=== PATIENT | male | born 1935 | race Caucasian/White ===

== ENCOUNTER → 2016-08-26 | Outpatient (CLI) | payer MEDICARE, OTHER ==
[~2016-08-26] MED LIST: ACET-1757 PO; ACID1TAB7 PO; ALBU18HF INH; ALBU8.5H3 INH; ASPI-496 PO; ATEN25TA PO; ATEN50TA41 PO; AZIT-14 PO; BENZ100C4 PO; BESI5DRO OP; BUDE10.2 INH; CEFD300C2 PO; CHOL500014 PO; CIPR500T87 PO; CLOB100F13 TP; CLOB50FO8 TD; DIPH25CA61 PO; EMPA25TA PO; ERGO500017 PO; FLUT16SP2 INH; FURO20TA3 PO; GABA100C8 PO; GABA300C10 PO; HYDR-3240 PO; HYDR5SUS PO; INSU100C SQ; INSU100C SQ-INSULIN; INSU100I11 SQ-INSULIN; INSU100V5 SQ-INSULIN; INSU100V8 SQ; INSU200I4 SQ; INSU200I4 SUBD; LACT1POW9 PO; LANS30CA PO; LEVO100T5 PO; LEVO250T8 PO; LEVO750T6 PO; LINA5TAB PO; LOSA25TA5 PO; MELO-184 PO; METF100010 PO; METF500T9 PO; METH500T5 PO; MOME17SP PO; MULT-717 PO; MUPI15CR9 TD; MUPI22OI2 TD; NITR100C PO; ONDA-39 PO; PANT40TA5 PO; PIOG30TA3 PO; POLY17PO5 PO; SIMV40TA3 PO; TACR100O2 TD; TAMS0.4C2 PO; TRAM50TA2 PO; TRIA340. TP; TRIA5PAS4 TD; WARF5TAB7 PO; WARF7.5T6 PO; WARF7.5T6 PO-COUM; [UNRECOGNIZED DRUG - CODE] IM; [UNRECOGNIZED DRUG - CODE] INJ
== END | disposition home or self-care (01) ==
LOC: RAD 09:27
PROVIDERS: ATTEND Internal Medicine
DX: Z51.89 Encounter for other specified aftercare (principal); R13.10 Dysphagia, unspecified
CPT/HCPCS: 74230

== ENCOUNTER 2016-11-20 16:01 | Emergency (ER) | payer MEDICARE, OTHER ==
[~2016-11-20] VITALS: Ht 177.8 cm; Wt 100.6 kg
[~2016-11-20 16:01] MED LIST changes: -AZIT-14 PO; +AZIT250T89 PO; -CEFD300C2 PO; +CEFD300C37 PO; +GABA-826 PO; -GABA100C8 PO
[2016-11-20 16:52] LABS: BLOOD UREA NITROGEN 30 mg/dL (7-18)
[2016-11-20 18:57] VITALS: BP 160/74
== END 2016-11-20 18:59 | disposition home or self-care (01) ==
LOC: ED 18:11
DX: R33.9 Retention of urine, unspecified (principal); N40.0 Benign prostatic hyperplasia without lower urinary tract symptoms; Z88.0 Allergy status to penicillin
CPT/HCPCS: 36415; 51702; 80048; 81001; 82040; 85025; 99284

== ENCOUNTER 2017-06-04 12:35 | Inpatient (IN) | payer MEDICARE, OTHER ==
[~2017-06-04] VITALS: Ht 172.7 cm; Wt 94.1 kg
[~2017-06-04 12:35] MED LIST changes: -ALBU8.5H3 INH; +ALBU8.5H8 INH; +BENZ-17 PO; -BENZ100C4 PO; -CHOL500014 PO; +CHOL500045 PO; +INSU100I32 SQ; -MELO-184 PO; +MELO15TA24 PO; +NITR50CA PO; -ONDA-39 PO; +ONDA4TAB12 PO; +TRIA5PAS10 TD; -TRIA5PAS4 TD; +WARF6TAB7 PO
[2017-06-04] MEDS ORDERED: SODIUM CHLORIDE FLUSH 10ML SYR IVF ONE (13:00)
[2017-06-04] MEDS ORDERED: SODIUM CHLORIDE 0.9% 1,000ML IVBOLUS ONE (13:00)
[2017-06-04] MEDS ORDERED: PLEASE ENTER ALLERGIES MC SCH (13:00)
[2017-06-04] MEDS ORDERED: CEFTRIAXONE PMX 1GM/50ML 50 ML IVPB ONE ×2 (13:00)
[2017-06-04] MEDS ORDERED: PLEASE ENTER HEIGHT AND WEIGHT MC SCH (13:00)
[2017-06-04 13:14] LABS: BASOPHILS # (AUTO) 0.04 x10^3/uL (0-0.1); BASOPHILS % (AUTO) 1 % (0-1); EOSINOPHILS # (AUTO) 0.02 x10^3/uL (0-0.4); EOSINOPHILS % (AUTO) 0 % (1-7); LYMPHOCYTES # (AUTO) 0.55 x10^3/uL (1-3.4); LYMPHOCYTES % (AUTO) 7 % (22-44); MD NO; MEAN CORPUSCULAR HEMOGLOBIN 25.6 pg (27.5-34.5); MEAN CORPUSCULAR HGB CONC 31.9 g/dL (33.2-36.2); MEAN CORPUSCULAR VOLUME 80.2 fL (81-97); MEAN PLATELET VOLUME 7.9 fL (7.4-10.4); MONOCYTES # (AUTO) 0.75 x10^3/uL (0.2-0.8); MONOCYTES % (AUTO) 10 % (2-9); NEUTROPHILS # (AUTO) 6.43 x10^3/uL (1.8-6.8); NEUTROPHILS % (AUTO) 83 % (42-75); PLATELET COUNT 179 x10^3/uL (130-400); RED BLOOD COUNT 4.54 x10^6/uL (4.38-5.82); RED CELL DISTRIBUTION WIDTH 20.4 % (9.4-14.8)
[2017-06-04 13:17] LABS: RAPID INFLUENZA A POSITIVE (Negative); RAPID INFLUENZA B Negative (Negative)
[2017-06-04 13:21] LABS: INTERNATIONAL NORMALIZED RATIO 1.55 (0.93-1.1)
[2017-06-04] MEDS ORDERED: CEFTRIAXONE PMX 1GM/50ML 50 ML ONE (13:21)
[2017-06-04 13:25] LABS: ANION GAP 9 mmol/L (5-15); CALCIUM 9.1 mg/dL (8.5-10.1); CHLORIDE 106 mmol/L (98-107)
[2017-06-04 13:26] LABS: ALANINE AMINOTRANSFERASE 27 U/L (12-78); ALBUMIN 3.2 g/dL (3.4-5.0)
[2017-06-04 13:28] LABS: ALKALINE PHOSPHATASE 68 U/L (45-117); BILIRUBIN,TOTAL 0.6 mg/dL (0.2-1.0); TOTAL PROTEIN 7.1 g/dL (6.4-8.2)
[2017-06-04] MEDS ORDERED: OSELTAMIVIR 75 MG CAPSULE PO ONE (14:30)
[2017-06-04 14:35] LABS: MICROSCOPIC AUTO
[2017-06-04 14:40] LABS: CULTURE INDICATED? YES
[2017-06-04 15:54] VITALS: BP 113/67
[2017-06-04] MEDS ORDERED: POLYETHYLENE GLYCOL 17 GM PACKET PO PRN (16:30)
[2017-06-04] MEDS ORDERED: ONDANSETRON ODT 4 MG PO PRN (16:30)
[2017-06-04] MEDS ORDERED: GUAIFENESIN/DM 200-20MG, 10ML UDC PO PRN (16:30)
[2017-06-04] MEDS ORDERED: HEPARIN 5,000 UNITS/ML, 1ML SQ SCH (16:30)
[2017-06-04] MEDS ORDERED: CEFTRIAXONE PMX 1GM/50ML 50 ML IV SCH (16:30)
[2017-06-04] MEDS ORDERED: ALBUTEROL/IPRATROPIUM 2.5MG/0.5MG, 3 ML ONE (16:56)
[2017-06-04] MEDS ORDERED: DEXTROSE 50%, 50ML SYRINGE IVPush PRN (17:30)
[2017-06-04] MEDS ORDERED: DEXTROSE 4 GM TAB.CHEW PO PRN (17:30)
[2017-06-04] MEDS ORDERED: GLUCAGON 1 MG IM PRN (17:30)
[2017-06-04] MEDS ORDERED: ALBUTEROL/IPRATROPIUM 2.5MG/0.5MG, 3 ML NPPB PRN (17:30)
[2017-06-04] MEDS: SODIUM CHLORIDE 0.9% 1,000 ML IV SCH ×2 (17:38→23:59)
[2017-06-04] MEDS: AZITHROMYCIN 500 MG in SODIUM CHLORIDE 0.9% 250 ML IV SCH (17:47)
[2017-06-04] MEDS ORDERED: WARFARIN 7.5 MG TABLET PO-COUM ONE (18:00)
[2017-06-04] MEDS ORDERED: ALBUTEROL/IPRATROPIUM 2.5MG/0.5MG, 3 ML NPPB SCH (20:00)
[2017-06-04 20:29] VITALS: BP 113/67
[2017-06-04] MEDS: SODIUM CHLORIDE FLUSH 10ML SYR IVF SCH (20:59)
[2017-06-04] MEDS: CEFTRIAXONE 1,000 MG in SODIUM CHLORIDE 0.9% 50 ML IV SCH (20:59)
[2017-06-04] MEDS: ALBUTEROL/IPRATROPIUM 2.5MG/0.5MG, 3 ML NPPB SCH (21:00)
[2017-06-04] MEDS: INSULIN ASPART 100 UNITS/ML, PEN SQ-INSULIN SCH (21:00)
[2017-06-04] MEDS: LACTOBACILLUS CHEW TABLET PO SCH (21:19)
[2017-06-04] MEDS: SIMVASTATIN 40 MG TABLET PO SCH (21:19)
[2017-06-04] MEDS: TAMSULOSIN 0.4 MG CAP.ER.24H PO SCH (21:19)
[2017-06-05 03:29] VITALS: BP 114/68
[2017-06-05 05:43] LABS: BASOPHILS % (AUTO) 0 % (0-1); EOSINOPHILS # (AUTO) 0.02 x10^3/uL (0-0.4); EOSINOPHILS % (AUTO) 0 % (1-7); LYMPHOCYTES # (AUTO) 0.45 x10^3/uL (1-3.4); LYMPHOCYTES % (AUTO) 9 % (22-44); MD NO; MEAN CORPUSCULAR HEMOGLOBIN 25.9 pg (27.5-34.5); MEAN CORPUSCULAR HGB CONC 32.2 g/dL (33.2-36.2); MEAN CORPUSCULAR VOLUME 80.2 fL (81-97); MONOCYTES # (AUTO) 0.85 x10^3/uL (0.2-0.8); MONOCYTES % (AUTO) 18 % (2-9); NEUTROPHILS # (AUTO) 3.57 x10^3/uL (1.8-6.8); NEUTROPHILS % (AUTO) 73 % (42-75); PLATELET COUNT 152 x10^3/uL (130-400); RED BLOOD COUNT 4.16 x10^6/uL (4.38-5.82); RED CELL DISTRIBUTION WIDTH 19.7 % (9.4-14.8)
[2017-06-05 05:46] LABS: INTERNATIONAL NORMALIZED RATIO 1.68 (0.93-1.1); PROTHROMBIN TIME 17.3 Seconds (9.6-11.5)
[2017-06-05 05:54] LABS: ANION GAP 10 mmol/L (5-15); CALCIUM 8.7 mg/dL (8.5-10.1); CHLORIDE 111 mmol/L (98-107); CREATININE 1.39 mg/dL (0.7-1.3)
[2017-06-05] MEDS: SODIUM CHLORIDE 0.9% 1,000 ML IV SCH ×3 (06:26→20:07)
[2017-06-05] MEDS: INSULIN ASPART 100 UNITS/ML, PEN SQ-INSULIN SCH ×4 (07:00→20:48)
[2017-06-05 07:05] VITALS: BP 130/75
[2017-06-05] MEDS: LEVOTHYROXINE 100 MCG TABLET PO SCH (08:09)
[2017-06-05] MEDS: LACTOBACILLUS CHEW TABLET PO SCH ×3 (08:09→20:38)
[2017-06-05] MEDS: TAMSULOSIN 0.4 MG CAP.ER.24H PO SCH ×2 (08:09→20:39)
[2017-06-05] MEDS: ASPIRIN 81 MG TABLET CHEW PO SCH (08:09)
[2017-06-05] MEDS: SODIUM CHLORIDE FLUSH 10ML SYR IVF SCH ×2 (08:10→20:37)
[2017-06-05] MEDS: SENNA/DOCUSATE TABLET PO SCH (08:10)
[2017-06-05] MEDS: GUAIFENESIN/DM 200-20MG, 10ML UDC PO PRN ×3 (08:33→20:38)
[2017-06-05] MEDS ORDERED: ASPIRIN 81 MG TABLET EC PO SCH (09:00)
[2017-06-05] MEDS: ALBUTEROL/IPRATROPIUM 2.5MG/0.5MG, 3 ML NPPB SCH ×2 (11:08→19:57)
[2017-06-05] MEDS: BENZONATATE 100 MG CAPSULE PO SCH ×3 (11:25→20:39)
[2017-06-05 12:42] VITALS: BP 125/69
[2017-06-05] MEDS: AZITHROMYCIN 500 MG in SODIUM CHLORIDE 0.9% 250 ML IV SCH (16:19)
[2017-06-05 17:17] LABS: BASOPHILS # (AUTO) 0.07 x10^3/uL (0-0.1); BASOPHILS % (AUTO) 2 % (0-1); EOSINOPHILS # (AUTO) 0.02 x10^3/uL (0-0.4); EOSINOPHILS % (AUTO) 1 % (1-7); LYMPHOCYTES # (AUTO) 0.55 x10^3/uL (1-3.4); LYMPHOCYTES % (AUTO) 14 % (22-44); MD NO; MEAN CORPUSCULAR HEMOGLOBIN 26.2 pg (27.5-34.5); MEAN CORPUSCULAR HGB CONC 32.4 g/dL (33.2-36.2); MEAN CORPUSCULAR VOLUME 80.8 fL (81-97); MEAN PLATELET VOLUME 7.9 fL (7.4-10.4); MONOCYTES # (AUTO) 0.71 x10^3/uL (0.2-0.8); MONOCYTES % (AUTO) 18 % (2-9); NEUTROPHILS # (AUTO) 2.64 x10^3/uL (1.8-6.8); NEUTROPHILS % (AUTO) 66 % (42-75); PLATELET COUNT 161 x10^3/uL (130-400); RED BLOOD COUNT 4.11 x10^6/uL (4.38-5.82); RED CELL DISTRIBUTION WIDTH 19.9 % (9.4-14.8)
[2017-06-05 17:29] LABS: ALBUMIN 2.6 g/dL (3.4-5.0); ANION GAP 8 mmol/L (5-15); CALCIUM 8.2 mg/dL (8.5-10.1); CHLORIDE 111 mmol/L (98-107); CREATININE 1.29 mg/dL (0.7-1.3)
[2017-06-05] MEDS ORDERED: WARFARIN 7.5 MG TABLET PO-COUM ONE (18:00)
[2017-06-05] MEDS: ACETAMINOPHEN 325 MG TABLET PO PRN ×2 (18:50→20:36)
[2017-06-05 18:54] VITALS: BP 132/72
[2017-06-05] MEDS: CEFTRIAXONE 1,000 MG in SODIUM CHLORIDE 0.9% 50 ML IV SCH (20:36)
[2017-06-05] MEDS: SIMVASTATIN 40 MG TABLET PO SCH (20:39)
[2017-06-06 01:31] LABS: CLOSTRIDIUM DIFFICILE ANTIGEN NEGATIVE; CLOSTRIDIUM DIFFICILE TOXIN NEGATIVE (Negative)
[2017-06-06 02:17] VITALS: BP 116/71
[2017-06-06] MEDS: SODIUM CHLORIDE 0.9% 1,000 ML IV SCH ×3 (04:37→18:36)
[2017-06-06 05:00] LABS: INTERNATIONAL NORMALIZED RATIO 2.42 (0.93-1.1); PROTHROMBIN TIME 24.7 Seconds (9.6-11.5)
[2017-06-06] MEDS: LEVOTHYROXINE 100 MCG TABLET PO SCH (06:16)
[2017-06-06] MEDS: INSULIN ASPART 100 UNITS/ML, PEN SQ-INSULIN SCH ×4 (07:00→20:46)
[2017-06-06 07:59] VITALS: BP 134/72
[2017-06-06] MEDS: ASPIRIN 81 MG TABLET CHEW PO SCH (08:09)
[2017-06-06] MEDS: LACTOBACILLUS CHEW TABLET PO SCH ×3 (08:10→20:47)
[2017-06-06] MEDS: BENZONATATE 100 MG CAPSULE PO SCH ×3 (08:10→20:47)
[2017-06-06] MEDS: TAMSULOSIN 0.4 MG CAP.ER.24H PO SCH ×2 (08:13→20:47)
[2017-06-06] MEDS: SODIUM CHLORIDE FLUSH 10ML SYR IVF SCH ×2 (08:13→20:48)
[2017-06-06] MEDS: SENNA/DOCUSATE TABLET PO SCH (08:14)
[2017-06-06] MEDS: ATENOLOL 25 MG TABLET PO SCH (08:14)
[2017-06-06] MEDS: ALBUTEROL/IPRATROPIUM 2.5MG/0.5MG, 3 ML NPPB SCH ×2 (11:28→19:02)
[2017-06-06 12:41] VITALS: BP 118/56
[2017-06-06] MEDS ORDERED: WARFARIN 3 MG TABLET PO-COUM ONE (18:00)
[2017-06-06] MEDS: AZITHROMYCIN 500 MG in SODIUM CHLORIDE 0.9% 250 ML IV SCH (18:16)
[2017-06-06 20:28] VITALS: BP 147/70
[2017-06-06] MEDS: CEFTRIAXONE 1,000 MG in SODIUM CHLORIDE 0.9% 50 ML IV SCH (20:45)
[2017-06-06] MEDS: OSELTAMIVIR 75 MG CAPSULE PO SCH (20:46)
[2017-06-06] MEDS: SIMVASTATIN 40 MG TABLET PO SCH (20:47)
[2017-06-06 21:59] VITALS: BP 130/71
[2017-06-07] MEDS ORDERED: FUROSEMIDE 20 MG/2 ML IV SCH (00:30)
[2017-06-07 00:36] VITALS: BP 131/68
[2017-06-07 05:01] LABS: BASOPHILS # (AUTO) 0.01 x10^3/uL (0-0.1); BASOPHILS % (AUTO) 0 % (0-1); EOSINOPHILS % (AUTO) 3 % (1-7); LYMPHOCYTES # (AUTO) 0.69 x10^3/uL (1-3.4); LYMPHOCYTES % (AUTO) 21 % (22-44); MD NO; MEAN CORPUSCULAR HEMOGLOBIN 26.3 pg (27.5-34.5); MEAN CORPUSCULAR HGB CONC 33.1 g/dL (33.2-36.2); MEAN CORPUSCULAR VOLUME 79.5 fL (81-97); MEAN PLATELET VOLUME 7.6 fL (7.4-10.4); MONOCYTES % (AUTO) 12 % (2-9); NEUTROPHILS # (AUTO) 2.11 x10^3/uL (1.8-6.8); NEUTROPHILS % (AUTO) 64 % (42-75); PLATELET COUNT 167 x10^3/uL (130-400); RED BLOOD COUNT 4.25 x10^6/uL (4.38-5.82); RED CELL DISTRIBUTION WIDTH 19.4 % (9.4-14.8)
[2017-06-07 05:03] LABS: INTERNATIONAL NORMALIZED RATIO 3.16 (0.93-1.1); PROTHROMBIN TIME 32.1 Seconds (9.6-11.5)
[2017-06-07 05:08] LABS: ANION GAP 9 mmol/L (5-15); CHLORIDE 108 mmol/L (98-107); CREATININE 0.97 mg/dL (0.7-1.3)
[2017-06-07] MEDS: LEVOTHYROXINE 100 MCG TABLET PO SCH (06:29)
[2017-06-07] MEDS: INSULIN ASPART 100 UNITS/ML, PEN SQ-INSULIN SCH ×4 (08:38→20:03)
[2017-06-07 08:39] VITALS: BP 128/58
[2017-06-07] MEDS: SODIUM CHLORIDE FLUSH 10ML SYR IVF SCH ×2 (08:41→20:03)
[2017-06-07] MEDS: LACTOBACILLUS CHEW TABLET PO SCH ×3 (08:41→20:01)
[2017-06-07] MEDS: BENZONATATE 100 MG CAPSULE PO SCH ×3 (08:41→20:02)
[2017-06-07] MEDS: TAMSULOSIN 0.4 MG CAP.ER.24H PO SCH ×2 (08:41→20:03)
[2017-06-07] MEDS: ASPIRIN 81 MG TABLET CHEW PO SCH (08:41)
[2017-06-07] MEDS: OSELTAMIVIR 75 MG CAPSULE PO SCH ×2 (08:42→20:02)
[2017-06-07] MEDS: SENNA/DOCUSATE TABLET PO SCH (08:42)
[2017-06-07] MEDS: ATENOLOL 25 MG TABLET PO SCH (08:42)
[2017-06-07] MEDS: ALBUTEROL/IPRATROPIUM 2.5MG/0.5MG, 3 ML NPPB SCH ×2 (09:00→18:40)
[2017-06-07 15:59] VITALS: BP 139/73
[2017-06-07] MEDS: AZITHROMYCIN 500 MG in SODIUM CHLORIDE 0.9% 250 ML IV SCH (16:28)
[2017-06-07] MEDS ORDERED: WARFARIN 5 MG TABLET PO-COUM ONE (18:00)
[2017-06-07] MEDS: CEFTRIAXONE 1,000 MG in DEXTROSE 5% 50 ML IV SCH (18:33)
[2017-06-07] MEDS: SIMVASTATIN 40 MG TABLET PO SCH (20:02)
[2017-06-07 20:12] VITALS: BP 114/70
[2017-06-07] MEDS ORDERED: CEFTRIAXONE 1,000 MG in DEXTROSE 5% 50 ML IV SCH (21:00)
[2017-06-08 01:33] VITALS: BP 144/79
[2017-06-08 05:27] LABS: INTERNATIONAL NORMALIZED RATIO 4.98 (0.93-1.1)
[2017-06-08 05:34] LABS: PROTHROMBIN TIME 50.2 Seconds (9.6-11.5)
[2017-06-08] MEDS: LEVOTHYROXINE 100 MCG TABLET PO SCH (06:33)
[2017-06-08] MEDS: INSULIN ASPART 100 UNITS/ML, PEN SQ-INSULIN SCH ×4 (07:00→20:56)
[2017-06-08 07:53] VITALS: BP 165/73
[2017-06-08] MEDS ORDERED: HOLD COUMADIN MC PRN (08:00)
[2017-06-08] MEDS: ATENOLOL 25 MG TABLET PO SCH (09:00)
[2017-06-08] MEDS: SODIUM CHLORIDE FLUSH 10ML SYR IVF SCH ×2 (09:00→20:55)
[2017-06-08] MEDS: BENZONATATE 100 MG CAPSULE PO SCH ×3 (09:21→20:55)
[2017-06-08] MEDS: OSELTAMIVIR 75 MG CAPSULE PO SCH ×2 (09:21→20:55)
[2017-06-08] MEDS: TAMSULOSIN 0.4 MG CAP.ER.24H PO SCH ×2 (09:21→20:55)
[2017-06-08] MEDS: LACTOBACILLUS CHEW TABLET PO SCH ×3 (09:21→20:55)
[2017-06-08] MEDS: ASPIRIN 81 MG TABLET CHEW PO SCH (09:21)
[2017-06-08] MEDS: SENNA/DOCUSATE TABLET PO SCH (09:21)
[2017-06-08] MEDS: ALBUTEROL/IPRATROPIUM 2.5MG/0.5MG, 3 ML NPPB SCH ×2 (10:00→19:16)
[2017-06-08] MEDS: FUROSEMIDE 20 MG/2 ML IV SCH ×2 (12:16→16:43)
[2017-06-08] MEDS: POTASSIUM CHLORIDE 20 MEQ TAB.ER.PRT PO SCH ×2 (12:17→16:43)
[2017-06-08] MEDS: LOSARTAN 25MG TABLET PO SCH (12:17)
[2017-06-08 15:56] VITALS: BP 137/76
[2017-06-08] MEDS: CEFTRIAXONE 1,000 MG in DEXTROSE 5% 50 ML IV SCH (16:43)
[2017-06-08] MEDS: AZITHROMYCIN 500 MG in SODIUM CHLORIDE 0.9% 250 ML IV SCH (17:30)
[2017-06-08 18:28] VITALS: BP 108/73
[2017-06-08] MEDS: SIMVASTATIN 40 MG TABLET PO SCH (20:55)
[2017-06-08] MEDS: ACETAMINOPHEN 325 MG TABLET PO PRN (20:56)
[2017-06-09 00:10] VITALS: BP 122/62
[2017-06-09 05:16] LABS: BASOPHILS # (AUTO) 0.02 x10^3/uL (0-0.1); BASOPHILS % (AUTO) 1 % (0-1); EOSINOPHILS # (AUTO) 0.15 x10^3/uL (0-0.4); EOSINOPHILS % (AUTO) 3 % (1-7); LYMPHOCYTES # (AUTO) 1.07 x10^3/uL (1-3.4); LYMPHOCYTES % (AUTO) 25 % (22-44); MD NO; MEAN CORPUSCULAR HEMOGLOBIN 25.7 pg (27.5-34.5); MEAN CORPUSCULAR HGB CONC 32.6 g/dL (33.2-36.2); MEAN CORPUSCULAR VOLUME 78.9 fL (81-97); MEAN PLATELET VOLUME 7.5 fL (7.4-10.4); MONOCYTES # (AUTO) 0.43 x10^3/uL (0.2-0.8); MONOCYTES % (AUTO) 10 % (2-9); NEUTROPHILS # (AUTO) 2.61 x10^3/uL (1.8-6.8); NEUTROPHILS % (AUTO) 61 % (42-75); PLATELET COUNT 169 x10^3/uL (130-400); RED BLOOD COUNT 4.37 x10^6/uL (4.38-5.82); RED CELL DISTRIBUTION WIDTH 19.5 % (9.4-14.8)
[2017-06-09 05:20] LABS: INTERNATIONAL NORMALIZED RATIO 5.08 (0.93-1.1); PROTHROMBIN TIME 51.2 Seconds (9.6-11.5)
[2017-06-09 05:30] LABS: ANION GAP 5 mmol/L (5-15); CALCIUM 8.3 mg/dL (8.5-10.1); CHLORIDE 107 mmol/L (98-107); CREATININE 0.99 mg/dL (0.7-1.3)
[2017-06-09] MEDS: LEVOTHYROXINE 100 MCG TABLET PO SCH (06:20)
[2017-06-09 07:37] VITALS: BP 151/69
[2017-06-09] MEDS ORDERED: HOLD COUMADIN MC PRN (08:00)
[2017-06-09] MEDS: SENNA/DOCUSATE TABLET PO SCH (09:00)
[2017-06-09] MEDS: ALBUTEROL/IPRATROPIUM 2.5MG/0.5MG, 3 ML NPPB SCH ×2 (09:00→19:18)
[2017-06-09] MEDS: ATENOLOL 25 MG TABLET PO SCH (09:00)
[2017-06-09] MEDS: INSULIN ASPART 100 UNITS/ML, PEN SQ-INSULIN SCH ×4 (09:23→22:13)
[2017-06-09] MEDS: SODIUM CHLORIDE FLUSH 10ML SYR IVF SCH ×2 (09:23→22:11)
[2017-06-09] MEDS: OSELTAMIVIR 75 MG CAPSULE PO SCH ×2 (09:23→22:12)
[2017-06-09] MEDS: LACTOBACILLUS CHEW TABLET PO SCH ×3 (09:24→22:12)
[2017-06-09] MEDS: LOSARTAN 25MG TABLET PO SCH (09:24)
[2017-06-09] MEDS: TAMSULOSIN 0.4 MG CAP.ER.24H PO SCH ×2 (09:24→21:00)
[2017-06-09] MEDS: ASPIRIN 81 MG TABLET CHEW PO SCH (09:24)
[2017-06-09] MEDS: BENZONATATE 100 MG CAPSULE PO SCH ×3 (09:24→22:12)
[2017-06-09] MEDS ORDERED: ONDANSETRON 2MG/ML, 2ML ONE (11:32)
[2017-06-09] MEDS ORDERED: ONDANSETRON 2MG/ML, 2ML IVPush PRN (12:00)
[2017-06-09 13:56] VITALS: BP 135/78
[2017-06-09] MEDS: CEFTRIAXONE 1,000 MG in DEXTROSE 5% 50 ML IV SCH (16:34)
[2017-06-09] MEDS: AZITHROMYCIN 500 MG in SODIUM CHLORIDE 0.9% 250 ML IV SCH (17:12)
[2017-06-09 18:57] VITALS: BP 105/52
[2017-06-09] MEDS: SIMVASTATIN 40 MG TABLET PO SCH (22:13)
[2017-06-10 02:26] VITALS: BP 118/70
[2017-06-10] MEDS: LEVOTHYROXINE 100 MCG TABLET PO SCH (05:38)
[2017-06-10 06:53] LABS: INTERNATIONAL NORMALIZED RATIO 3.66 (0.93-1.1); PROTHROMBIN TIME 37.1 Seconds (9.6-11.5)
[2017-06-10 07:05] VITALS: BP 159/77
[2017-06-10] MEDS: ALBUTEROL/IPRATROPIUM 2.5MG/0.5MG, 3 ML NPPB SCH (07:27)
[2017-06-10] MEDS: SENNA/DOCUSATE TABLET PO SCH (08:35)
[2017-06-10] MEDS ORDERED: WARF2TAB PO-COUM (08:45)
[2017-06-10] MEDS ORDERED: CEFD300C37 PO (08:45)
[2017-06-10] MEDS ORDERED: OSEL75CA PO (08:45)
[2017-06-10] MEDS: SODIUM CHLORIDE FLUSH 10ML SYR IVF SCH (08:50)
[2017-06-10] MEDS: TAMSULOSIN 0.4 MG CAP.ER.24H PO SCH (08:50)
[2017-06-10] MEDS: INSULIN ASPART 100 UNITS/ML, PEN SQ-INSULIN SCH ×2 (08:50→11:16)
[2017-06-10] MEDS: BENZONATATE 100 MG CAPSULE PO SCH (08:50)
[2017-06-10] MEDS: LACTOBACILLUS CHEW TABLET PO SCH (08:50)
[2017-06-10] MEDS: ATENOLOL 25 MG TABLET PO SCH (08:51)
[2017-06-10] MEDS: LOSARTAN 25MG TABLET PO SCH (08:51)
[2017-06-10] MEDS: OSELTAMIVIR 75 MG CAPSULE PO SCH (08:51)
[2017-06-10] MEDS: ASPIRIN 81 MG TABLET CHEW PO SCH (09:00)
[2017-06-10 14:05] VITALS: BP 137/68
[2017-06-10] MEDS ORDERED: WARFARIN 2 MG TABLET PO-COUM SCH (18:00)
== END 2017-06-10 17:09 | DRG 682 ==
LOC: ED 12:54 → EDIP 14:06 → INTOOBSV 14:06 → 4WST 16:13 → OBSVTOIN 06-05 15:35
PROVIDERS: ADMIT Family Medicine; ATTEND Family Medicine
DX: N17.9 Acute kidney failure, unspecified (principal); J10.00 Influenza due to other identified influenza virus with unspecified type of pneumonia; J96.01 Acute respiratory failure with hypoxia; I50.43 Acute on chronic combined systolic (congestive) and diastolic (congestive) heart failure; E87.2 Acidosis; D68.69 Other thrombophilia; E11.42 Type 2 diabetes mellitus with diabetic polyneuropathy; J18.9 Pneumonia, unspecified organism; J44.0 Chronic obstructive pulmonary disease with (acute) lower respiratory infection; N39.0 Urinary tract infection, site not specified; I11.0 Hypertensive heart disease with heart failure; I95.9 Hypotension, unspecified; I48.91 Unspecified atrial fibrillation; E03.9 Hypothyroidism, unspecified; E78.5 Hyperlipidemia, unspecified; F03.90 Unspecified dementia, unspecified severity, without behavioral disturbance, psychotic disturbance, mood disturbance, and anxiety; G47.33 Obstructive sleep apnea (adult) (pediatric); I25.10 Atherosclerotic heart disease of native coronary artery without angina pectoris; K22.0 Achalasia of cardia; N28.1 Cyst of kidney, acquired; N40.0 Benign prostatic hyperplasia without lower urinary tract symptoms; Z79.01 Long term (current) use of anticoagulants; Z79.4 Long term (current) use of insulin; Z95.0 Presence of cardiac pacemaker; Z95.5 Presence of coronary angioplasty implant and graft; Z79.899 Other long term (current) drug therapy; Z88.0 Allergy status to penicillin; Z79.82 Long term (current) use of aspirin
CPT/HCPCS: 36415; 71045; 74018; 74230; 80048; 80053; 81001; 82040; 82962; 83605; 83735; 85025; 85610; 87040; 87077; 87086; 87324; 87400; 93005; 93306; 94640; 96365; 96366; G0378; J0456; J0696; J1815; J2405; J7620; J1940; J7030; J7050

== ENCOUNTER 2017-09-24 16:55 | Emergency (ER) | payer MEDICARE, OTHER ==
[~2017-09-24] VITALS: Ht 177.8 cm; Wt 85.0 kg
[~2017-09-24 16:55] MED LIST changes: +OSEL75CA PO; +WARF-36 PO; +WARF2TAB PO-COUM; -WARF5TAB7 PO; +WARF6TAB47 PO; -WARF6TAB7 PO; +WARF7.5T46 PO; +WARF7.5T46 PO-COUM; -WARF7.5T6 PO; -WARF7.5T6 PO-COUM
[2017-09-24 17:03] VITALS: BP 143/82
[2017-09-24 18:06] LABS: MICROSCOPIC AUTO
[2017-09-24 18:09] LABS: CULTURE INDICATED? YES
== END 2017-09-24 19:40 | disposition home or self-care (01) ==
LOC: ED 18:30
DX: N30.01 Acute cystitis with hematuria (principal); B37.42 Candidal balanitis; J44.9 Chronic obstructive pulmonary disease, unspecified; I10 Essential (primary) hypertension; I48.91 Unspecified atrial fibrillation; I25.10 Atherosclerotic heart disease of native coronary artery without angina pectoris; I95.9 Hypotension, unspecified; E11.9 Type 2 diabetes mellitus without complications
CPT/HCPCS: 51700; 74176; 81001; 87077; 87086; 87186; 99285

== ENCOUNTER 2018-06-22 08:19 | Day surgery (SDC) | payer MEDICARE, OTHER ==
[~2018-06-22] VITALS: Ht 170.2 cm; Wt 86.8 kg
[~2018-06-22 08:19] MED LIST changes: +ACET325T14 PO; +BARRIER CREAM TP; +CHOL500050 PO; +DESENEX TP; +LACTINEX PO; +LOPE2TAB59 PO; +LOSA25TA25 PO; -LOSA25TA5 PO; +METR500T PO; -PIOG30TA3 PO; +PIOG30TA67 PO; +UREA 40% TP
[2018-06-22 08:54] VITALS: BP 115/60
[2018-06-22] MEDS ORDERED: MIDAZOLAM 1 MG/ML, 5ML ONE (09:23)
[2018-06-22] MEDS ORDERED: LIDOCAINE 2%, 20ML ONE (09:23)
[2018-06-22] MEDS ORDERED: FENTANYL PF 250 MCG/5ML ONE (09:23)
[2018-06-22] MEDS ORDERED: CEFAZOLIN 1,000 MG ONE (09:24)
[2018-06-22] MEDS ORDERED: VANCOMYCIN 500 MG ONE (09:29)
[2018-06-22] MEDS ORDERED: VANCOMYCIN PMX 1GM/200ML 200 ML ONE (09:29)
[2018-06-22] MEDS ORDERED: SACC250C4 PO (09:49)
[2018-06-22] MEDS ORDERED: SODIUM CHLORIDE 0.9% 1,000 ML IV SCH (10:00)
[2018-06-22] MEDS ORDERED: VANCOMYCIN PMX 1GM/200ML 200 ML IVPB SCH (10:00)
[2018-06-22] MEDS ORDERED: HOLD MEDICATION MC PRN (10:30)
[2018-06-22] MEDS ORDERED: TEMPLATE NON-FORMULARY MED. (Tramadol Hcl** 50 MG) PO PRN (10:30)
[2018-06-22] MEDS ORDERED: INSULIN GLARGINE HUM REC ANLOG 65 UNIT SQ SCH (10:30)
[2018-06-22] MEDS ORDERED: METRONIDAZOLE 500 MG PO SCH (10:30)
[2018-06-22] MEDS ORDERED: TEMPLATE NON-FORMULARY MED. (Cholecalciferol (Vitamin D3)** (Vitamin D3**) 50,000 UNIT) PO SCH (10:30)
[2018-06-22] MEDS ORDERED: TEMPLATE NON-FORMULARY MED. (Albuterol Sulfate (Proair Hfa) 90 MCG) INH SCH (10:30)
[2018-06-22] MEDS ORDERED: ACETAMINOPHEN 325 MG TABLET PO PRN (10:30)
[2018-06-22] MEDS ORDERED: TEMPLATE NON-FORMULARY MED. (Insulin Lispro** (Humalog**) 0 UNITS) SQ-INSULIN SCH (11:00)
[2018-06-22] MEDS ORDERED: ACETAMINOPHEN 325 MG TABLET ONE (11:15)
[2018-06-22] MEDS ORDERED: LACTINEX PO SCH (16:00)
[2018-06-22] MEDS ORDERED: WARFARIN SODIUM 2 MG PO-COUM SCH (18:00)
[2018-06-22] MEDS ORDERED: SODIUM CHLORIDE FLUSH 10ML SYR IVF SCH (21:00)
[2018-06-22] MEDS ORDERED: TEMPLATE NON-FORMULARY MED. (Metformin Hcl** (Metformin Hcl Er**) 1,000 MG) PO SCH (21:00)
[2018-06-22] MEDS ORDERED: SIMVASTATIN 40 MG TABLET PO SCH (21:00)
[2018-06-22] MEDS ORDERED: CEFDINIR 300 MG PO SCH (21:00)
[2018-06-22] MEDS ORDERED: TEMPLATE NON-FORMULARY MED. (Budesonide/Formoterol Fumarate (Symbicort 160-4.5 Mcg Inhaler INH SCH (21:00)
[2018-06-23] MEDS ORDERED: LINAGLIPTIN 5 MG TAB PO SCH (09:00)
[2018-06-23] MEDS ORDERED: LEVOTHYROXINE SODIUM 100 MCG PO SCH (09:00)
[2018-06-23] MEDS ORDERED: TEMPLATE NON-FORMULARY MED. (Multivits-Min/Fa/Lycopene/Lut** (Centrum Silver Tablet**) 1 T PO SCH (09:00)
[2018-06-23] MEDS ORDERED: LOPERAMIDE HCL PO SCH (09:00)
[2018-06-23] MEDS ORDERED: TEMPLATE NON-FORMULARY MED. (Gabapentin 100 MG) PO SCH (09:00)
[2018-06-23] MEDS ORDERED: FLORASTOR 250 MG CAPSULE PO SCH (09:00)
[2018-06-23] MEDS ORDERED: TEMPLATE NON-FORMULARY MED. (Lansoprazole** 30 MG) PO SCH (09:00)
== END 2018-06-22 13:00 | disposition home or self-care (01) ==
LOC: CACL 08:19
PROVIDERS: ATTEND Internal Medicine Cardiovascular Disease
DX: Z45.010 Encounter for checking and testing of cardiac pacemaker pulse generator [battery] (principal); I48.2 Chronic atrial fibrillation; E11.22 Type 2 diabetes mellitus with diabetic chronic kidney disease; I13.10 Hypertensive heart and chronic kidney disease without heart failure, with stage 1 through stage 4 chronic kidney disease, or unspecified chronic kidney disease; N18.3 Chronic kidney disease, stage 3 (moderate); Z79.899 Other long term (current) drug therapy; I25.10 Atherosclerotic heart disease of native coronary artery without angina pectoris; Z88.1 Allergy status to other antibiotic agents; Z88.0 Allergy status to penicillin; Z79.4 Long term (current) use of insulin
CPT/HCPCS: 33228; 99156; C1785; J2250; J3010; J3370; J3490; J0690